=== PATIENT | female | born 1965 | race Caucasian/White ===

== ENCOUNTER 2019-02-16 12:49 | Day surgery (SDC) | payer BC ==
[~2019-02-16] VITALS: Ht 154.9 cm; Wt 53.0 kg
[2019-02-16] VITALS (17 sets, daily range): BP systolic 96–198; BP diastolic 51–95; PULSE 86–116; RESP 11–25; Ht 154.9 cm; Wt 53.0 kg
[~2019-02-16 12:49] MED LIST: CEFAZOLIN 2 GM/50 ML (PMX) 50 ML IVPB ONE; LACTATED RINGER'S 1,000 ML IV SCH
[2019-02-16] MEDS ORDERED: QUET100T PO (14:19)
[2019-02-16] MEDS ORDERED: METO-448 PO (14:19)
[2019-02-16] MEDS ORDERED: OXYC1TAB6 PO (14:19)
[2019-02-16] MEDS ORDERED: LORA-444 PO (14:19)
--- NOTE | 2019-02-16 14:58 | HPN ---
Date/Time of Note Date/Time of Note DATE: 02/16/19 TIME: 14:58 Interval H&P Admission Note Pt. seen H&P reviewed: No system changes LAKESHIA BARRIOS Feb 16, 2019 14:58
--- NOTE | 2019-02-16 17:42 | PREAC ---
Date/Time of Note Date/Time of Note DATE: 02/16/19 TIME: 17:39 Anesthesia Eval and Record Evaluation Time Pre-Procedure Interview DATE: 02/16/19 TIME: 17:39 Age 53 Sex female NPO: 8 hrs Preoperative diagnosis Bilat distal radius fractures Planned procedure Bilateral distal radius ORIF Past Medical History Past Medical History: Includes Cardio: HTN Psych: Anxiety Surgery & Anesthesia Issues No known issue Meds Anticoagulation: No Beta Candido within 24 hr: Yes Reported Medications Quetiapine Fumarate* (Seroquel*) 100 Mg Tablet, 100 MG PO HS, #30 TAB 02/16/19 Oxycodone Hcl-Acetaminophen* (Oxycodone Hcl-Acetaminophen*) 2.5-325 Mg Tablet, 1 TAB PO Q4H PRN for PAIN LEVEL 6-10, TAB 02/16/19 Lorazepam* (Ativan*) 2 Mg Tablet, 2 MG PO HS PRN for ANXIETY, #30 TAB 02/16/19 Metoprolol Tartrate* (Lopressor*) 25 Mg Tab, 25 MG PO BID, #60 TAB 02/16/19 Current Medications Lactated Ringer's 1,000 ml @ 20 mls/hr Q24H IV ; Start 02/16/19 at 06:00; Stop 02/16/19 at 23:00 Meds reviewed: Yes Allergies Coded Allergies: No Known Allergies (Verified Allergy, Unknown, 02/15/19) Allergies Reviewed: Yes Labs/Studies Labs Reviewed: Reviewed by anesthesiologist Result Diagram: 02/16/19 1405 02/16/19 1405 Laboratory Tests 02/16/19 14:05 test: N/A Studies: ECG Pre-procedure Exam Last vitals Vital Signs Date Temp Pulse Resp B/P (MAP) Pulse Ox O2 O2 Flow FiO2 Time Delivery Rate 02/16/19 98.6 88 16 96/51 (66) 94 Room Air 14:09 Airway: Adequate mouth opening, Adequate thyromental dist Mallampati: Mallampati II Teeth: Normal Lung: Normal Heart: Normal ASA Physical Status ASA physical status: 3 Emergency: None Planned Anesthetic General/MAC: LMA Nerve block: Brachial plexus (right) Planned Pain Management Single shot nerve block, Parenteral pain med, Local by surgeon Pre-operative Attestations Prior to commencing anesthesia and surgery, the patient was re-evaluated, there was verification of: *The patient's identity *The results of appropriate recent lab work and preoperative vital signs *The above evaluation not changing prior to induction *Anesthetic plan, risk benefits, alternative and complications discussed with patient/family; questions answered; patient/family understands, accepts and wishes to proceed. DUYEN BECKMAN MD Feb 16, 2019 17:42
[2019-02-16] MEDS ORDERED: MIDAZOLAM 1 MG/ML 2 ML INJ ONE (17:48)
[2019-02-16] MEDS ORDERED: BUPIVACAINE 0.5% (SDV) 30 ML INJ ONE (18:21)
[2019-02-16] MEDS ORDERED: POLYMYXIN/BACITRACIN 1L IRRIG ONE (18:23)
[2019-02-16] MEDS ORDERED: hydrALAzine 20 MG INJ ONE (18:38)
[2019-02-16] MEDS ORDERED: FENTAnyl 50 MCG/ML VIAL ONE (19:14)
[2019-02-16] MEDS ORDERED: CEFAZOLIN 1 GM INJ ONE (20:19)
[2019-02-16] MEDS ORDERED: ROCURONIUM 50 MG INJ ONE (20:20)
[2019-02-16] MEDS ORDERED: LIDOCAINE 2% (SDV) 5 ML INJ ONE (20:20)
[2019-02-16] MEDS ORDERED: PROPOFOL 20 ML ONE (20:20)
[2019-02-16] MEDS ORDERED: BUPIVACAINE 0.25% (MPF) 30 ML INJ ONE (20:20)
[2019-02-16] MEDS ORDERED: ONDANSETRON 4 MG INJ ONE (20:25)
[2019-02-16] MEDS ORDERED: DEXAMETHASONE 4 MG/ML 5 ML INJ ONE (20:25)
[2019-02-16] MEDS ORDERED: METOCLOPRAMIDE 10 MG INJ ONE (20:25)
--- NOTE | 2019-02-16 21:04 | PAC ---
Date/Time of Note Date/Time of Note DATE: 02/16/19 TIME: 21:03 Post-Anesthesia Notes Post-Anesthesia Note Last documented vital signs Vital Signs Date Temp Pulse Resp B/P (MAP) Pulse Ox O2 O2 Flow FiO2 Time Delivery Rate 02/16/19 98.6 88 16 96/51 (66) 94 Room Air 14:09 Activity: WNL Respiratory function: WNL Cardiovascular function: WNL Mental status: Baseline Pain reasonably controlled: Yes Hydration appropriate: Yes Nausea/Vomiting absent: Yes Comments BP:149/68, P:78, Spo2:100%, T:98,6 DUYEN BECKMAN MD Feb 16, 2019 21:04
[2019-02-16] MEDS ORDERED: MEPERIDINE 25 MG INJ ONE (21:05)
[2019-02-16] MEDS ORDERED: LABETALOL HCL 20MG INJ ONE (21:05)
[2019-02-16] MEDS ORDERED: ONDANSETRON 4 MG INJ IV PRN (21:30)
[2019-02-16] MEDS ORDERED: OXYCODONE/ACETAMINOPHEN (5/325) TAB PO PRN ×2 (21:30)
[2019-02-16] MEDS ORDERED: DIPHENHYDRAMINE 50 MG INJ IV PRN (21:30)
[2019-02-16] MEDS ORDERED: KETOROLAC 30 MG INJ IV PRN (21:30)
[2019-02-16] MEDS ORDERED: HYDROmorphONE 1 MG/5 ML IV SYRINGE IV PRN ×2 (21:30)
[2019-02-16] MEDS ORDERED: METOCLOPRAMIDE 10 MG INJ IV PRN (21:30)
[2019-02-16] MEDS ORDERED: hydrALAzine 20 MG INJ IV PRN (21:30)
[2019-02-16] MEDS ORDERED: MEPERIDINE 25 MG INJ IV PRN (21:30)
[2019-02-16] MEDS ORDERED: LABETALOL HCL 20MG INJ IV PRN (21:30)
[2019-02-16] MEDS ORDERED: FENTAnyl 50 MCG/ML VIAL IV PRN (21:30)
--- NOTE | 2019-02-17 02:37 | OPR ---
DATE OF OPERATION: 02/16/2019 SURGEON: Kole Euceda MD ANESTHESIA: General. PREOPERATIVE DIAGNOSES: 1. Right distal radius fracture, intra-articular, greater than 3 fragments. 2. Right carpal tunnel syndrome. 3. Right scaphoid waist fracture nonunion. 4. Left distal radius fracture, intra-articular, greater than 3 fragments. 5. Left carpal tunnel syndrome. POSTOPERATIVE DIAGNOSES: 1. Right distal radius fracture, intra-articular, greater than 3 fragments. 2. Right carpal tunnel syndrome. 3. Right scaphoid waist fracture nonunion. 4. Left distal radius fracture, intra-articular, greater than 3 fragments. 5. Left carpal tunnel syndrome. PROCEDURE: 1. Open reduction internal fixation, right distal radius fracture, intra- articular, greater than 3 fragments. 2. Lengthening of the right wrist brachioradialis tendon at the level of the wrist. 3. Right carpal tunnel release, open. 4. Open reduction internal fixation of right scaphoid waist fracture nonunion. 5. Open reduction internal fixation, left distal radius fracture, intra- articular, greater than 3 fragments. 6. Lengthening of the left wrist brachioradialis tendon at the level of the wrist. 7. Left carpal tunnel release, open. OPERATIVE FINDINGS: 1. Displaced intra-articular bilateral distal radius fractures with right wrist scaphoid waist fracture nonunion. 2. Swelling at the carpal tunnels bilaterally. INDICATION FOR PROCEDURE: A 53-year-old female with bilateral wrist injuries who was seen in clinic and diagnosed with bilateral distal radius fractures which were intra-articular, as well as a right scaphoid waist fracture nonunion. She also had numbness in the hands. We discussed the options. The patient elected to proceed with surgical intervention, understanding the risks and benefits. DESCRIPTION OF PROCEDURE: The patient was seen in the preoperative area and all further questions were answered. Again, she gave informed consent, understanding the risks and benefits. She was taken to the operative suite and placed in supine position. She was placed under general anesthesia and tourniquet placed in the bilateral upper extremities. Bilateral upper extremities were prepped with ChloraPrep stick and draped in the usual sterile fashion. Attention was first turned to the left wrist and attention was then turned to the distal radius fracture. A modified volar Rainer approach to the left distal radius was utilized with sharp dissection carried down through the skin and subcutaneous tissue. The FCR sheath incised and FCR tendon retracted ulnarly. The FCR subsheath incised and the FPL tendon retracted ulnarly. Pronator quadratus elevated off the radial and distal borders of the distal radius and the fracture site was identified. The fracture fragments were displaced radially at the distal aspect and were being pulled by the brachioradialis tendon. A lengthening of the brachioradialis tendon was performed at the radial styloid to bring the fracture into a more appropriate alignment without tension, using a 15 blade knife and bovie electrocautery. The fracture site was mobilized and was brought into a more anatomic position. A [employer] volar distal radius plate was placed across the fracture site, and cortical and locking screws were placed proximally and distally. X-ray imaging showed appropriate hardware placement and bony alignment. Wound was copiously irrigated. The skin was closed with 5-0 nylon. Attention was turned to the left carpal tunnel and 2 cm incision at the base of the palm was utilized with sharp dissection carried down through the skin and subcutaneous tissue. The palmar aponeurosis incised along its ulnar border and retractors deepened. The transverse carpal ligament was divided along its ulnar border approximately 3 mm radial to the hook of the hamate. Retractor was placed proximally and distally, and the proximal and distal extents of the transverse carpal ligament were divided under direct visualization. Wound was copiously irrigated and the skin closed with 5-0 nylon. Xeroform placed over the wounds followed by sterile gauze and Webril. Attention was then turned to the right side and Esmarch bandage was used to exsanguinate the extremity and tourniquet inflated to 250 mmHg. Attention was first turned to the distal radius fracture and a modified volar Rainer approach to the right distal radius was utilized with sharp dissection carried down through the skin and subcutaneous tissue. The FCR sheath was incised and the FCR tendon retracted ulnarly. The FCR subsheath incised and FPL tendon retracted ulnarly. The pronator quadratus was elevated off the radial and distal borders of the distal radius and the fracture site was identified. The fracture site was displaced and there was a radial pole of the distal fragment due to the brachioradialis tendon. A lengthening of the brachioradialis tendon was performed using a 15 blade knife and Bovie electrocautery at the radial styloid. After lengthening of the brachioradialis, I was able to reduce the fracture into a more anatomic position. A [employer] volar distal radius plate was placed across the fracture site, and cortical and locking screws were placed proximally and distally. X-ray imaging showed appropriate hardware placement and bony alignment. The wound was copiously irrigated and skin closed with 5-0 nylon. Attention was turned to the right carpal tunnel and a 2 cm incision at the base of the palm was utilized with sharp dissection carried down through the skin and subcutaneous tissue. The palmar aponeurosis was incised along its ulnar border and retractors deepened. The transverse carpal ligament was divided along its ulnar border approximately 3 mm radial to the hook of the hamate. Retractors were placed proximally and distally, and the proximal and distal extents of the transverse carpal ligament were divided under direct visualization. Wound was copiously irrigated and the skin closed with 5-0 nylon. Attention was then turned to the right scaphoid fracture and a dorsal approach to the wrist joint was utilized with sharp dissection carried down through the skin and subcutaneous tissue. The right wrist was accessed and tenotomy scissor divided the soft tissues overlying the extensor tendons. The 2nd, 3rd and 4th dorsal compartments were incised and were retracted. The dorsal wrist capsule was visualized and a transverse capsulotomy was made. The proximal pole of the scaphoid was visualized and a guidewire for a [employer] headless compression screw was placed across the proximal pole of the scaphoid past the scaphoid waist fracture site and into the distal pole. X-ray imaging showed appropriate trajectory of the guidewire and it was measured to be an 18 mm headless compression screw. An 18 mm [employer] headless compression screw was placed across the fracture site, compressing the fracture nicely. The K-wire was removed and x-ray imaging showed appropriate hardware placement and bony alignment of the scaphoid. The distal radius articular surface was inspected due to the proximity of the surgical approach and the ability to visualize it from the capsulotomy. The wound was irrigated and a Hayden elevator was swept along the articular surface and was directly visualized showing no hardware prominence. There was a comminution of the joint surface but overall acceptable alignment with less than 1 mm step-off. The wound was again irrigated and capsular layer closed with 4-0 Monocryl and skin closed with 5-0 nylon. Xeroform placed over the wounds followed by sterile gauze, Webril and a short arm splint. Tourniquet deflated after 76 minutes on the right side. The patient was awakened from anesthesia and a short arm splint was then placed on the left side. Tourniquet time on the left side was 40 minutes. The patient was taken to the postoperative suite in stable condition, tolerated the procedure well without complication. SPECIMENS: None. ESTIMATED BLOOD LOSS: 5 mL COUNTS: Sponge, instrument, needle counts correct. TOURNIQUET TIME: Right side 76 minutes, left side 40 minutes. CONDITION ON DISCHARGE: Stable. The patient was given a nonrefillable 5-day prescription for pain medication for surgery today. Dictated By: KOLE LOMAS/DALI Conf#: [id number] DID#: [id number] MTDD
--- NOTE | 2019-02-17 17:07 | RADRPT ---
Vent Rate: 78 bpm RR Interval: 772 msec OK Interval: 169 msec QRS Duration: 97 msec QT Interval: 391 msec QTC Interval: 445 msec P-R-T [place]: 77 - 75 - 64 degrees Sinus rhythm...normal P axis, V-rate 50- 99 Electronically Signed By: Andre Reis
== END 2019-02-16 22:40 | disposition home or self-care (01) ==
LOC: SDS 12:49
PROVIDERS: ATTEND Orthopaedic Surgery Hand Surgery
DX: S52.572A Other intraarticular fracture of lower end of left radius, initial encounter for closed fracture (principal); S52.501A Unspecified fracture of the lower end of right radius, initial encounter for closed fracture; X58.XXXA Exposure to other specified factors, initial encounter; S62.001K Unspecified fracture of navicular [scaphoid] bone of right wrist, subsequent encounter for fracture with nonunion; G56.03 Carpal tunnel syndrome, bilateral upper limbs
CPT/HCPCS: 71045; 73110; 80048; 84703; 85025; 85610; 85730; 93005; C1713; J0360; J0690; J1100; J1170; J1885; J2175; J2250; J2405; J2765; J3010

== ENCOUNTER 2019-05-03 19:14 | Emergency (ER) | payer BC ==
[~2019-05-03] VITALS: Ht 154.9 cm; Wt 54.3 kg
[~2019-05-03 19:14] MED LIST changes: +ACET325T33 PO; +BACL10TA PO; -CEFAZOLIN 2 GM/50 ML (PMX) 50 ML IVPB ONE; +CLON-379 PO; +DIPH1TAB PO; +HYDR-4011 PO; -LACTATED RINGER'S 1,000 ML IV SCH; +LOPE2CAP PO; +LORA-441 PO; +LORA-444 PO; +METO-448 PO; +OXYC1TAB6 PO; +QUET100T PO
[2019-05-03 19:17] VITALS: Ht 154.9 cm; Wt 54.3 kg
[2019-05-03] MEDS ORDERED: FAMOTIDINE 20 MG INJ IV STA (20:39)
[2019-05-03] MEDS ORDERED: morphine 4 MG/ML VIAL IV STA (20:39)
[2019-05-03] MEDS ORDERED: SOD CHLORIDE 0.9% 1,000 ML IV STA (20:39)
[2019-05-03] MEDS ORDERED: FAMOTIDINE 20 MG TAB PO ONE (21:00)
[2019-05-03] MEDS ORDERED: morphine 4 MG/ML VIAL IM STA (21:00)
[2019-05-03] MEDS ORDERED: SOD CHLORIDE 0.9% 100 ML ONE (21:48)
[2019-05-03] MEDS ORDERED: IOHEXOL 300MG/ML 150 ML BTL ONE (21:48)
[2019-05-03] MEDS ORDERED: HYDROmorphONE 0.5 MG/0.5 ML SYG IV STA (22:32)
[2019-05-03] MEDS ORDERED: SOD CHLORIDE 0.9% 1,000 ML IV ONE (23:00)
[2019-05-04 00:26] VITALS: BP 159/88; PULSE 80; RESP 20
== END 2019-05-04 00:28 | disposition home or self-care (01) ==
LOC: FTE 19:14
DX: K59.1 Functional diarrhea (principal); I10 Essential (primary) hypertension; F17.210 Nicotine dependence, cigarettes, uncomplicated
CPT/HCPCS: 36415; 74177; 80053; 81003; 83690; 85025; 87045; 87177; 96372; 96374; J1170; J2270; J7030; Q9967; Z7502; Z7610; 87075